=== PATIENT | male | born 1955 | race Caucasian/White ===

== ENCOUNTER 2016-06-07 10:45 | Day surgery (SDC) | payer BC ==
[~2016-06-07 10:45] MED LIST: AMARYL1 MG PO; AMITIZA24 MC1 PO; ASPIR 8181 M1 PO; ASPIR 8181 MG PO; BYSTOLIC20 M1 PO; CALCITRIOL0.25 MCG PO; CARBIDOPA-LEVO1 EAC9 PO; CARBIDOPA25 MG PO; CATAPRES-TTS 21 EACH TOP; CATAPRES-TTS 31 EACH TP; CATAPRES0.1 MG PO; CATAPRES0.2 M1 PO; CELEXA10 M1 PO; COZAAR50 MG PO; CPAP; CRESTOR20 MG PO; CRESTOR40 MG/TAB PO; FOLIC ACID1 M1 PO; HYCET 7.5 MG-3473 M2 PO; IMDUR60 MG PO; INDERAL LA160 M1 PO; ISOSORBIDE MONO60 M3 PO; KEFLEX500 M2 PO; LANTUS SOLOSTAR3 ML SQ; LASIX40 M1 PO; MINOXIDIL2.5 M1 PO; MYSOLINE50 M3 PO; NITROSTAT0.4 MG/TAB SL; NIZORAL APL; NORVASC5 M2 PO; NOVOLOG100 UNIT/2; OMEPRAZOLE20 M4 PO; PLAVIX75 M1 PO; PROCRIT; PROMETHAZINE HC50 M2 PO; PROPRANOLOL HC160 M1 PO; RANEXA1000 M1 PO; RANEXA1000 MG PO; RENVELA800 M1 PO; ROCALTROL0.25 MC1 PO; SYNTHROID25 MC1 PO; TEGRETOL200 M1 PO; TEGRETOL200 MG PO; TRICOR145 M1 PO; TRICOR145 M2 PO; VALIUM5 M1 PO; VITAMIN D250000 UNI1 PO; ZAROXOLYN2.5 MG PO; [UNRECOGNIZED DRUG - REMARK]
[2016-06-07 12:05] LABS: ANION GAP 10 mmol/L (0-20); BLOOD UREA NITROGEN 59 mg/dl (6-24); CALCIUM 8.7 mg/dl (8.5-10.5); CARBON DIOXIDE-VENOUS 30 mmol/L (22-32); CHLORIDE 108 mmol/l (96-110); CREATININE 4.37 mg/dl (0.60-1.30); POTASSIUM 5.3 mmol/L (3.7-5.1); SODIUM 143 mmol/L (135-145); eGFR VALUE FOR BLACK 16 mL/Min
[2016-06-07 12:09] LABS: GLUCOSE 67 mg/dL (70-110)
[2016-10-29] MEDS ORDERED: COZAAR100 M1 PO (16:41)
[2016-10-29] MEDS ORDERED: TOUJEO SOL300 UNIT/1 SC (16:41)
[2016-10-29] MEDS ORDERED: ULTRAM50 M1 PO (16:42)
[2016-10-31] MEDS ORDERED: STOP THE FOLLOWING (12:38)
== END 2016-06-07 20:05 ==
LOC: SHSB 10:45 → ORW 14:19 → PACU 15:36 → SHSB 16:40
PROVIDERS: Surgery
PROC: 0WHG43Z Insertion of Infusion Device into Peritoneal Cavity, Percutaneous Endoscopic Approach (ICD-10-PCS; principal; 2016-06-07)
PROC: 0FT44ZZ Resection of Gallbladder, Percutaneous Endoscopic Approach (ICD-10-PCS; 2016-06-07)
PROC: 0DQS4ZZ (ICD-10-PCS; 2016-06-07)
DX: E11.22 Type 2 diabetes mellitus with diabetic chronic kidney disease (principal); I12.0 Hypertensive chronic kidney disease with stage 5 chronic kidney disease or end stage renal disease; N18.6 End stage renal disease; K80.10 Calculus of gallbladder with chronic cholecystitis without obstruction; I25.10 Atherosclerotic heart disease of native coronary artery without angina pectoris; E78.00 Pure hypercholesterolemia, unspecified; E78.5 Hyperlipidemia, unspecified; E03.9 Hypothyroidism, unspecified; E11.319 Type 2 diabetes mellitus with unspecified diabetic retinopathy without macular edema; Z88.8 Allergy status to other drugs, medicaments and biological substances; Z95.5 Presence of coronary angioplasty implant and graft; Z79.899 Other long term (current) drug therapy; Z98.890 Other specified postprocedural states
CPT/HCPCS: C1750; J1170; J1956; J2405; J3010; J7030